=== PATIENT | female | born 1945 | race Caucasian/White ===

== ENCOUNTER 2021-04-02 16:44 | Emergency (ER) | payer OTHER ==
[~2021-04-02 16:44] MED LIST: ACETAMINOPHEN325 MG PO; AMARYL2 MG PO; BACLOFEN 10MG T10 MG PO; CALCIUM + VITA1 EACH PO; CERTAGEN1 EACH PO; COLACE100 MG PO; EVISTA60 MG PO; FEOSOL325 MG PO; LAXATIVE OF CHOICE; NOVOLOG MI100 UNIT/1 SC; PRILOSEC20 MG PO; TRIAMTERENE-HC1 EAC3 PO
[2021-04-02] MEDS ORDERED: ONDANSETRON ODT4 MG SL (21:14)
[2021-04-02] MEDS ORDERED: NORCO 5-325 TA1 EACH PO (21:14)
== END 2021-04-02 21:30 | disposition home or self-care (01) ==
LOC: FER 16:44
DX: S63.522A Sprain of radiocarpal joint of left wrist, initial encounter (principal); S56.912A Strain of unspecified muscles, fascia and tendons at forearm level, left arm, initial encounter; I10 Essential (primary) hypertension; E11.9 Type 2 diabetes mellitus without complications; Z88.8 Allergy status to other drugs, medicaments and biological substances; W19.XXXA Unspecified fall, initial encounter; Y92.009 Unspecified place in unspecified non-institutional (private) residence as the place of occurrence of the external cause
CPT/HCPCS: 73090; 96372; J1170; J1885; Q0162

== ENCOUNTER 2021-08-20 20:41 | Day surgery (SDCO) | payer OTHER ==
[~2021-08-20] VITALS: Ht 165.1 cm; Wt 81.6 kg
[~2021-08-20 20:41] MED LIST changes: +NORCO 5-325 TA1 EACH PO; +ONDANSETRON ODT4 MG SL
[2021-08-20 21:45] LABS: BASOPHIL 0.1 % (0-2); EOSINOPHIL 0.8 % (0-7); HGB 13.3 g/dl (12.5-16.0); LYMPHOCYTE 24.9 % (15-48); MCH 26.9 pg (25.0-31.0); MCHC 32.4 g/dL (32.0-36.0); MONOCYTE 5.1 % (0-12); MPV 11.3 fL (6.0-9.5); NRBC 0; RBC 4.94 M/uL (4.20-5.40); RDW 13.1 % (11.5-14.0); WBC 10.1 K/uL (4.0-10.5)
[2021-08-20 21:48] LABS: INR 1.04 (0.9-1.2)
[2021-08-20 21:49] LABS: PTT 27.5 SECONDS (24.4-34.7)
[2021-08-20 21:51] LABS: D-DIMER 0.31 ug/mLFEU (0.00-0.41)
[2021-08-20 21:58] LABS: ALBUMIN 3.4 g/dL (3.4-5.0); BILIRUBIN - TOTAL 0.3 mg/dL (0.2-1.0); BUN/CREAT RATIO (CALC) 21.5 RATIO; CREATININE 0.65 mg/dL (0.51-0.95); GLOBULIN (CALCULATION) 3.6 g/dL; POTASSIUM 3.4 mmol/L (3.5-5.1)
[2021-08-20 22:04] LABS: LACTIC ACID 0.8 mmol/L (0.4-1.9)
[2021-08-20 22:15] LABS: CORONAVIRUS 2019 SARS-COV-2 NEGATIVE (NEGATIVE); INFLUENZA A NAA NEGATIVE (NEGATIVE)
[2021-08-20 22:26] LABS: PLT 46 K/uL (150-400)
[2021-08-21 04:21] LABS: HCT 39.5 % (37.0-47.0); MCHC 32.9 g/dL (32.0-36.0); MCV 82.1 fL (78.0-100.0); MPV 10.9 fL (6.0-9.5); RBC 4.81 M/uL (4.20-5.40); WBC 10.4 K/uL (4.0-10.5)
[2021-08-21 04:46] LABS: CREATININE 0.56 mg/dL (0.51-0.95); MAGNESIUM 2.1 mg/dL (1.8-2.4); POTASSIUM 3.7 mmol/L (3.5-5.1)
[2021-08-21] MEDS ORDERED: AMARYL2 MG PO (07:51)
[2021-08-21] MEDS ORDERED: PROTONIX 40MG T40 MG PO (07:52)
[2021-08-21] MEDS ORDERED: HCTZ25 MG PO (07:54)
[2021-08-21] MEDS ORDERED: TAVALISSE PO (07:56)
[2021-08-21] MEDS ORDERED: NORVASC5 MG PO (12:13)
[2021-08-21] MEDS ORDERED: POTASSIUM CHLO20 ME1 PO (12:13)
== END 2021-08-21 14:30 | disposition home or self-care (01) ==
LOC: FER 20:41 → FTCU 08-21 02:38
PROVIDERS: Emergency Medicine Emergency Medical Services; Nurse Practitioner; ADMIT Internal Medicine
DX: R07.89 Other chest pain (principal); I10 Essential (primary) hypertension; D69.6 Thrombocytopenia, unspecified; E11.9 Type 2 diabetes mellitus without complications; K21.9 Gastro-esophageal reflux disease without esophagitis; M81.0 Age-related osteoporosis without current pathological fracture; I44.7 Left bundle-branch block, unspecified; M25.512 Pain in left shoulder; Z88.8 Allergy status to other drugs, medicaments and biological substances; Z79.4 Long term (current) use of insulin; Z79.899 Other long term (current) drug therapy; Z20.822 Contact with and (suspected) exposure to COVID-19
CPT/HCPCS: 36415; 71045; 80048; 80053; 80061; 82553; 83036; 83605; 83690; 83735; 83880; 84484; 85025; 85379; 85610; 85730; 87040; 93005; 93971; 94640; G0378; J2270; J2405; U0002